=== PATIENT | female | born 1995 | race Caucasian/White ===

== ENCOUNTER → 2017-10-31 17:42 | Outpatient (CLI) | payer SELFPAY ==
[2017-10-31 18:58] LABS: Erythrocyte Sedimentation Rate 60 mm/hr (0-20)
[2017-10-31 19:28] LABS: Creatine Kinase 2134 U/L (26-192)
== END ==
PROVIDERS: PCP Emergency Medicine; Visit Provider Emergency Medicine
DX: M60.9 Myositis, unspecified (principal)
CPT/HCPCS: 36415; 82550; 85651

== ENCOUNTER → 2018-03-13 08:10 | Outpatient (CLI) | payer SELFPAY ==
[2018-03-13 13:33] LABS: Basophils % 0.7 % (0.1-2.0); Eosinophils # 0.3 K/mm3 (0.0-0.4); Eosinophils % 5.7 % (0.1-12.0); Hematocrit 43.8 % (37.0-47.0); Lymphocytes # 2.3 K/mm3 (0.7-4.5); Lymphocytes % 40.8 K/mm3 (10-50); Mean Corpuscular HGB Conc 32.1 g/dL (31.8-35.4); Mean Corpuscular Hemoglobin 28.6 pg (27.0-31.2); Mean Corpuscular Volume 89.2 fl (81-99); Mean Platelet Volume 7.8 fl (7.4-10.4); Monocytes # 0.3 K/mm3 (0.1-1.0); Monocytes % 6.1 % (1.7-9.3); Neutrophils # 2.6 K/mm3 (1.8-7.8); Neutrophils % 46.8 % (37.0-80.0); Platelet Count 244 K/mm3 (142-424); Red Blood Count 4.91 M/mm3 (4.20-5.40); Red Cell Distribution Width 12.6 % (11.5-17.5); White Blood Count 5.6 K/mm3 (4.8-10.8)
[2018-03-13 14:13] LABS: Alanine Aminotransferase 94 U/L (12-78); Albumin Level 4.1 gm/dL (3.4-5.0); Albumin/Globulin Ratio 1.4 (1.1-1.8); Alkaline Phosphatase 61 U/L (46-116); Anion Gap 13.2 mEq/L (5-15); Aspartate Amino Transferase 57 U/L (15-37); Bilirubin,Total 0.4 mg/dL (0.2-1.0); Blood Urea Nitrogen 18 mg/dL (7-18); Carbon Dioxide 26 mmol/L (21.0-32.0); Chloride 105 mmol/L (98-107); Creatinine,Serum 0.37 mg/dL (0.55-1.02); Estimated Glomerular Filt Rate 215 ml/min (>60); GFR (African American) 260 ML/MIN (>60); Globulin 2.9 gm/dl (1.3-3.2); Glucose 86 mg/dL (74-106); Potassium 4.2 mmoL/L (3.5-5.1); Sodium 140 mmol/L (136-145)
[2018-03-13 14:24] LABS: Erythrocyte Sedimentation Rate 4 mm/hr (0-20)
[2018-03-13 16:48] LABS: Hemoglobin A1C 5.3 % (0.0-7.0)
[2018-03-13 17:21] LABS: Thyroid Stimulating Hormone 1.33 uIU/ml (0.358-3.740)
[2018-03-13 17:30] LABS: Creatine Kinase 1971 U/L (26-192)
[2018-03-15 02:34] LABS: Folate >20.0 ng/mL (>3.0); Vitamin B12 1061 pg/mL (232-1245)
[2018-03-16 09:12] LABS: Anti-Jo-1 <0.2 AI (0.0-0.9); Anti-Smith Antibody <0.2 AI (0.0-0.9); Antichromatin Antibodies <0.2 AI (0.0-0.9); Antiscleroderma-70 Antibodies <0.2 AI (0.0-0.9); RNP Antibodies 0.6 AI (0.0-0.9); Sjogren's Anti-SS-A <0.2 AI (0.0-0.9); Sjogren's Anti-SS-B <0.2 AI (0.0-0.9)
[2018-03-16 09:48] LABS: Anti-Centromere B Antibodies <0.2 AI (0.0-0.9); Anti-DNA (DS) Ab Qn 2 IU/mL (0-9)
== END ==
PROVIDERS: Visit Provider Specialist
DX: M62.81 Muscle weakness (generalized) (principal); M60.9 Myositis, unspecified; G72.9 Myopathy, unspecified; M33.20 Polymyositis, organ involvement unspecified
CPT/HCPCS: 36415; 80053; 82085; 82550; 82607; 82746; 83036; 84443; 85025; 85651; 86225; 86235

== ENCOUNTER → 2018-03-30 10:41 | Outpatient (CLI) | payer SELFPAY ==
--- NOTE | 2018-03-30 10:42 | CA_ITS ---
PROCEDURE: 2-D M-mode and color Doppler study INDICATIONS FOR THE TEST: Chest pain COPD Heart Murmur Tobacco Smoking Palpitations FatigueX Syncope Edema Hypertension Diabetes Mellitus Rheumatic Fever SOB CEBALLOS Obesity Hyperlipidemia Family History HD Additional History MYOSITIS,FATIGUE,MYOPATHY PATIENT INFORMATION HEIGHT: 65 WEIGHT:108 GENDER: Female B/P:121/92 2-D/M-MODE INTERPRETATION: 2-D MEASUREMENTS OBSERVED VALUES IN CMS Right Ventricular Dimension (RVDd) 2.0 Interventricular Septum (Thickness)(IVsd) .5 Left Ventricular Internal Dimensions(LVIDd) 5.0 Left Ventricular Posterior Wall (Thickness)(LVPWd) .6 Aortic Root 2.7 Aortic Cusp Separation 2.1 Left Atrial Dimensions (LAD) 2.4 2D 1. Left atrium is normal size, left ventricle is normal size, there is no concentric left ventricular hypertrophy, visually estimated ejection fraction 55% with no obvious regional wall motion abnormality. 2. The right atrium and right ventricle are normal size and contractility. 3. The aortic, mitral and tricuspid valve are grossly normal. 4. The pulmonic valve is poorly visualized. 5. No significant pericardial effusion noted. DOPPLER INTERROGATION: Doppler interrogation of the aortic, mitral and tricuspid valvular presence of mild mitral and tricuspid regurgitation, tricuspid and jet velocity is insufficient for calculation of the right ventricular systolic pressure, diastolic parameters are within normal range. CONCLUSION: 1. Normal left ventricular size, preserved left ventricular systolic function, visually estimated ejection fraction 55% with no obvious regional wall motion abnormality, diastolic parameters are within normal range. 2. Mild mitral and tricuspid regurgitation 3. No significant pericardial effusion noted.
--- NOTE | 2018-03-30 14:29 | XR_ITS ---
XR chest 2V HISTORY: ITS.REASON: muscle weakness ORDERING PHYSICIAN: Marian Cortes MD PATIENT AGE: 22 years FINDINGS: The cardiomediastinal silhouette and pulmonary vascularity are within normal limits. The lungs are clear without infiltrates, suspicious nodules, or pleural effusions. No acute bony abnormalities. IMPRESSION: Negative chest, no acute finding
== END ==
PROVIDERS: PCP Emergency Medicine; Visit Provider Specialist
DX: M62.81 Muscle weakness (generalized) (principal); M60.9 Myositis, unspecified; G72.9 Myopathy, unspecified; M33.20 Polymyositis, organ involvement unspecified
CPT/HCPCS: 71046; 93306; 94060; 94640; 94726; 94729

== ENCOUNTER → 2018-04-13 10:19 | Outpatient (POV) | payer SELFPAY | PROVIDERS: PCP Emergency Medicine; Visit Provider Specialist | DX: M62.81 Muscle weakness (generalized) (principal); M60.9 Myositis, unspecified; G72.9 Myopathy, unspecified; M33.20 Polymyositis, organ involvement unspecified | CPT/HCPCS: 95886; 95910 ==

== ENCOUNTER → 2018-04-24 08:00 | Outpatient (CLI) | payer SELFPAY ==
[2018-04-24 11:22] LABS: Creatine Kinase 1466 U/L (26-192)
[2018-04-30 06:55] LABS: Aldolase 24.2 U/L (3.3-10.3)
== END ==
PROVIDERS: Visit Provider Specialist
DX: M62.81 Muscle weakness (generalized) (principal); M33.20 Polymyositis, organ involvement unspecified
CPT/HCPCS: 36415; 82085; 82550

== ENCOUNTER → 2018-06-26 07:59 | Outpatient (CLI) | payer SELFPAY ==
[2018-06-26 08:23] LABS: Basophils % 0.1 % (0.1-2.0); Eosinophils # 0.1 K/mm3 (0.0-0.4); Eosinophils % 0.5 % (0.1-12.0); Hematocrit 46.4 % (37.0-47.0); Hemoglobin 15.6 g/dL (12.2-16.2); Lymphocytes # 1.3 K/mm3 (0.7-4.5); Mean Corpuscular HGB Conc 33.7 g/dL (31.8-35.4); Mean Corpuscular Hemoglobin 30.9 pg (27.0-31.2); Mean Corpuscular Volume 91.6 fl (81-99); Monocytes # 0.6 K/mm3 (0.1-1.0); Monocytes % 5.2 % (1.7-9.3); Neutrophils % 83.2 % (37.0-80.0); Platelet Count 275 K/mm3 (142-424); Red Blood Count 5.06 M/mm3 (4.20-5.40); Red Cell Distribution Width 12.8 % (11.5-17.5)
[2018-06-26 09:41] LABS: Alanine Aminotransferase 116 U/L (12-78); Albumin Level 3.7 gm/dL (3.4-5.0); Albumin/Globulin Ratio 1.3 (1.1-1.8); Alkaline Phosphatase 57 U/L (46-116); Anion Gap 11.3 mEq/L (5-15); Aspartate Amino Transferase 53 U/L (15-37); Bilirubin,Total 0.4 mg/dL (0.2-1.0); Blood Urea Nitrogen 13 mg/dL (7-18); Calcium 9.2 mg/dL (8.5-10.1); Carbon Dioxide 31 mmol/L (21.0-32.0); Chloride 103 mmol/L (98-107); Creatine Kinase 1098 U/L (26-192); Creatinine,Serum 0.24 mg/dL (0.55-1.02); Estimated Glomerular Filt Rate 351 ml/min (>60); GFR (African American) 424 ML/MIN (>60); Globulin 2.9 gm/dl (1.3-3.2); Glucose 82 mg/dL (74-106); Potassium 4.3 mmoL/L (3.5-5.1); Sodium 141 mmol/L (136-145); Total Protein,Serum 6.6 gm/dL (6.4-8.2)
== END ==
PROVIDERS: PCP Emergency Medicine; Visit Provider Specialist
DX: R53.1 Weakness (principal); M33.20 Polymyositis, organ involvement unspecified
CPT/HCPCS: 36415; 80053; 82550; 85025

== ENCOUNTER → 2018-08-07 17:19 | Outpatient (CLI) | payer SELFPAY ==
[2018-08-07 17:59] LABS: Basophils % 0.4 % (0.1-2.0); Eosinophils # 0.1 K/mm3 (0.0-0.4); Eosinophils % 0.6 % (0.1-12.0); Hematocrit 43.4 % (37.0-47.0); Lymphocytes # 3.2 K/mm3 (0.7-4.5); Lymphocytes % 32.1 % (10-50); Mean Corpuscular HGB Conc 32.4 g/dL (31.8-35.4); Mean Corpuscular Hemoglobin 29.6 pg (27.0-31.2); Mean Corpuscular Volume 91.6 fl (81-99); Monocytes # 0.7 K/mm3 (0.1-1.0); Monocytes % 7.6 % (1.7-9.3); Neutrophils # 5.8 K/mm3 (1.8-7.8); Neutrophils % 59.2 % (37.0-80.0); Platelet Count 296 K/mm3 (142-424); Red Blood Count 4.74 M/mm3 (4.20-5.40); Red Cell Distribution Width 12.4 % (11.5-17.5); White Blood Count 9.8 K/mm3 (4.8-10.8)
[2018-08-07 20:07] LABS: Alanine Aminotransferase 87 U/L (12-78); Albumin/Globulin Ratio 1.5 (1.1-1.8); Alkaline Phosphatase 58 U/L (46-116); Aspartate Amino Transferase 53 U/L (15-37); Bilirubin,Total 0.4 mg/dL (0.2-1.0); Blood Urea Nitrogen 17 mg/dL (7-18); Calcium 9.2 mg/dL (8.5-10.1); Carbon Dioxide 28 mmol/L (21.0-32.0); Chloride 102 mmol/L (98-107); Creatinine,Serum 0.38 mg/dL (0.55-1.02); Estimated Glomerular Filt Rate 206 ml/min (>60); GFR (African American) 250 ML/MIN (>60); Globulin 2.6 gm/dl (1.3-3.2); Glucose 74 mg/dL (74-106); Sodium 139 mmol/L (136-145); Total Protein,Serum 6.6 gm/dL (6.4-8.2)
[2018-08-07 20:13] LABS: Creatine Kinase 1575 U/L (26-192)
== END ==
PROVIDERS: Visit Provider Specialist
DX: M33.20 Polymyositis, organ involvement unspecified (principal)
CPT/HCPCS: 36415; 80053; 82550; 85025

== ENCOUNTER → 2018-09-25 17:07 | Outpatient (CLI) | payer SELFPAY ==
[2018-09-25 17:45] LABS: Basophils % 0.3 % (0.1-2.0); Eosinophils # 0.1 K/mm3 (0.0-0.4); Eosinophils % 0.6 % (0.1-12.0); Hematocrit 46.9 % (37.0-47.0); Hemoglobin 15.7 g/dL (12.2-16.2); Lymphocytes % 35.2 % (10-50); Mean Corpuscular HGB Conc 33.6 g/dL (31.8-35.4); Mean Corpuscular Hemoglobin 30.9 pg (27.0-31.2); Mean Platelet Volume 7.2 fl (7.4-10.4); Monocytes # 0.8 K/mm3 (0.1-1.0); Monocytes % 6.5 % (1.7-9.3); Neutrophils # 6.6 K/mm3 (1.8-7.8); Neutrophils % 57.5 % (37.0-80.0); Platelet Count 287 K/mm3 (142-424); Red Cell Distribution Width 12.5 % (11.5-17.5); White Blood Count 11.4 K/mm3 (4.8-10.8)
[2018-09-25 19:41] LABS: Alanine Aminotransferase 127 U/L (12-78); Albumin Level 3.8 gm/dL (3.4-5.0); Albumin/Globulin Ratio 1.5 (1.1-1.8); Alkaline Phosphatase 49 U/L (46-116); Aspartate Amino Transferase 75 U/L (15-37); Bilirubin,Total 0.5 mg/dL (0.2-1.0); Blood Urea Nitrogen 11 mg/dL (7-18); Calcium 9.1 mg/dL (8.5-10.1); Carbon Dioxide 31 mmol/L (21.0-32.0); Chloride 100 mmol/L (98-107); Estimated Glomerular Filt Rate 194 ml/min (>60); GFR (African American) 235 ML/MIN (>60); Globulin 2.6 gm/dl (1.3-3.2); Glucose 89 mg/dL (74-106); Sodium 138 mmol/L (136-145); Total Protein,Serum 6.4 gm/dL (6.4-8.2)
== END ==
PROVIDERS: Visit Provider Specialist
DX: M33.20 Polymyositis, organ involvement unspecified (principal)
CPT/HCPCS: 36415; 80053; 85025

== ENCOUNTER → 2018-10-05 14:17 | Outpatient (CLI) | payer SELFPAY ==
[2018-10-05 19:05] LABS: Creatine Kinase 1234 U/L (26-192)
== END ==
PROVIDERS: Visit Provider Specialist
DX: M33.20 Polymyositis, organ involvement unspecified (principal)
CPT/HCPCS: 36415; 82550

== ENCOUNTER → 2018-12-02 08:32 | Outpatient (CLI) | payer SELFPAY ==
[2018-12-02 13:46] LABS: Basophils % 0.4 % (0.1-2.0); Eosinophils # 0.1 K/mm3 (0.0-0.4); Eosinophils % 0.6 % (0.1-12.0); Hemoglobin 14.8 g/dL (12.2-16.2); Lymphocytes # 1.5 K/mm3 (0.7-4.5); Lymphocytes % 15.2 % (10-50); Mean Corpuscular HGB Conc 35.3 g/dL (31.8-35.4); Mean Corpuscular Hemoglobin 31.6 pg (27.0-31.2); Mean Corpuscular Volume 89.5 fl (81-99); Mean Platelet Volume 7.1 fl (7.4-10.4); Monocytes # 0.4 K/mm3 (0.1-1.0); Monocytes % 3.8 % (1.7-9.3); Neutrophils # 7.6 K/mm3 (1.8-7.8); Neutrophils % 80.1 % (37.0-80.0); Platelet Count 357 K/mm3 (142-424); Red Blood Count 4.69 M/mm3 (4.20-5.40); Red Cell Distribution Width 13.2 % (11.5-17.5); White Blood Count 9.5 K/mm3 (4.8-10.8)
[2018-12-02 14:14] LABS: Alanine Aminotransferase 162 U/L (12-78); Albumin Level 3.7 gm/dL (3.4-5.0); Albumin/Globulin Ratio 1.4 (1.1-1.8); Alkaline Phosphatase 43 U/L (46-116); Anion Gap 12.9 mEq/L (5-15); Aspartate Amino Transferase 72 U/L (15-37); Bilirubin,Total 0.4 mg/dL (0.2-1.0); Blood Urea Nitrogen 8 mg/dL (7-18); Calcium 9.3 mg/dL (8.5-10.1); Carbon Dioxide 27 mmol/L (21.0-32.0); Chloride 102 mmol/L (98-107); Creatinine,Serum 0.25 mg/dL (0.55-1.02); Estimated Glomerular Filt Rate 335 ml/min (>60); GFR (African American) 405 ML/MIN (>60); Globulin 2.7 gm/dl (1.3-3.2); Glucose 93 mg/dL (74-106); Potassium 3.9 mmoL/L (3.5-5.1); Sodium 138 mmol/L (136-145); Total Protein,Serum 6.4 gm/dL (6.4-8.2)
== END ==
PROVIDERS: PCP Emergency Medicine; Visit Provider Specialist
DX: M33.20 Polymyositis, organ involvement unspecified (principal)
CPT/HCPCS: 36415; 80053; 85025

== ENCOUNTER → 2018-12-04 10:30 | Outpatient (CLI) | payer SELFPAY ==
[2018-12-04 11:04] LABS: Creatine Kinase 1557 U/L (26-192)
[2018-12-07 13:28] LABS: Aldolase 21.4 U/L (3.3-10.3)
== END ==
PROVIDERS: Visit Provider Specialist
DX: M33.20 Polymyositis, organ involvement unspecified (principal)
CPT/HCPCS: 36415; 82085; 82550

== ENCOUNTER → 2018-12-24 18:13 | Outpatient (CLI) | payer SELFPAY ==
[2018-12-24 20:20] LABS: Alanine Aminotransferase 94 U/L (12-78); Albumin Level 3.5 gm/dL (3.4-5.0); Albumin/Globulin Ratio 1.3 (1.1-1.8); Alkaline Phosphatase 48 U/L (46-116); Anion Gap 12.2 mEq/L (5-15); Aspartate Amino Transferase 45 U/L (15-37); Bilirubin,Total 0.3 mg/dL (0.2-1.0); Blood Urea Nitrogen 7 mg/dL (7-18); Carbon Dioxide 29 mmol/L (21.0-32.0); Chloride 103 mmol/L (98-107); Creatine Kinase 1042 U/L (26-192); Creatinine,Serum 0.35 mg/dL (0.55-1.02); Estimated Glomerular Filt Rate 227 ml/min (>60); GFR (African American) 275 ML/MIN (>60); Globulin 2.8 gm/dl (1.3-3.2); Glucose 81 mg/dL (74-106); Potassium 3.2 mmoL/L (3.5-5.1); Sodium 141 mmol/L (136-145); Total Protein,Serum 6.3 gm/dL (6.4-8.2)
[2018-12-24 20:25] LABS: Creatine Kinase MB 32.2 ng/ml (0.0-3.6)
[2018-12-26 18:15] LABS: Peripheral Smear Review Scanned Result
[2018-12-30 14:26] LABS: Arsenic, Blood 8 ug/L (2-23); Lead, Blood None Detected ug/dL (0-4); Mercury, Blood None Detected ug/L (0.0-14.9)
== END ==
PROVIDERS: Visit Provider Nurse Practitioner Family
DX: M33.20 Polymyositis, organ involvement unspecified (principal); R53.1 Weakness
CPT/HCPCS: 36415; 80053; 82175; 82550; 82553; 83655; 83825

== ENCOUNTER 2021-02-26 15:15 | Emergency (ER) | payer SELFPAY ==
[2021-02-26 15:37] VITALS: BP 130/80; PULSE 92; RESP 18; TEMP 37; O2SAT 100; BMI 16.9
[2021-02-26 15:46] VITALS: PULSE 92; RESP 18; TEMP 36.9; O2SAT 100; BMI 16.9
[2021-02-26 16:26] LABS: UTC Pregnancy Test, Urine Negative (Negative)
--- NOTE | 2021-02-26 16:32 | HMH.EDUTC ---
[facility] [place] Clinical Impression: Migraine headache Qualifiers: Migraine type: unspecified Status migrainosus presence: without status migrainosus Intractability: not intractable Qualified Code(s): G43.909 - Migraine, unspecified, not intractable, without status migrainosus Disposition: Home, Self-Care Condition on Discharge: Good Instructions: Tension Headache, Migraine -- Adult, DI for Migraine Additional Instructions: Go home lay down and try to sleep off remainder of Migraine Headache Follow up with your Family Doctor if head worsens or returns Straight to ER if you are having the worse headache of your life, trouble with vision or changes in behavior Return if needed Referrals: Provider,Referral, MD [Primary Care Provider] - As needed Time of Disposition: 17:10 Medical Decision Making - Raymond Inquiry Pt receiving controlled substance: No Raymond was queried for this patient: No Vital Signs: 02/26/21 15:37 02/26/21 15:46 02/26/21 16:58 Temperature 98.6 F 98.5 F 98.6 F Temperature Source Oral Oral Pulse Rate 92 H Pulse Rate [Left Radial] 92 H 92 H Respiratory Rate 18 18 16 Blood Pressure 130/80 Blood Pressure [Left Arm] 130/80 Blood Pressure Mean [Left Arm] 96 Blood Pressure Source [Left Arm] Automatic Cuff Blood Pressure Position [Left Arm] Sitting 02 Sat by Pulse Oximetry 100 100 Oxygen Delivery Method Room Air - Lab Data Lab results reviewed: Yes: I reviewed the patient's lab results. Lab Results 02/26/21 16:10: Tst Clinic Negative Orders (Tests/Meds): ED MEDICATIONS Discontinued Medications Generic Name Dose Route Start Last Admin Trade Name Daniella PRN Reason Stop Dose Admin Diphenhydramine HCl 25 mg 02/26/21 16:34 02/26/21 16:47 Diphenhydramine 50mg/Ml Vial IM 02/26/21 16:35 25 mg ONCE ONE Administration Ketorolac Tromethamine 60 mg 02/26/21 16:34 02/26/21 16:46 Ketorolac 60mg/2ml Vial IM 02/26/21 16:35 60 mg ONCE ONE Administration Ondansetron HCl 4 mg 02/26/21 16:34 02/26/21 16:48 Ondansetron 4mg Odt SL 02/26/21 16:35 4 mg ONCE ONE Administration Medical Decision Narrative: Patient state that headache is feeling much better patient dc'd home Discussed with patient that if headache worsens or if she has the worse headache of her life to go straight to the ED and follow up with Family Doctor if headache returns patient states that she did not have a PCP so she was given a list of accepting physicians for follow up [facility] [place] - General Stated complaint: TRAN Time Seen by Provider: 02/26/21 16:15 Mode of Arrival: Ambulatory Source of Information: Patient Limitations: No Limitations Description of Symptoms (Recalled from Triage Doc. by RN): pt c/o of a TRAN on the L posterior side. this has been ongoing for a week with no relief. pt took ibprofen first thing this morning with no relief. pt has had some nausea and as of yesterday lost her appetite. HEENT Symptoms (Recalled from RN notes): Yes (TRAN) Resp Symptoms (Recalled from RN notes): No Skin Symptoms (Recalled from RN notes): No MS Symptoms (Recalled from RN notes): No Functional Status (Recalled from RN notes): na - History of Present Illness Provider Complaint: Patient states that she has been having a headache for about a week States that it hurts in the back of her neck, back of head and on left side of head but feels like it is starting to move around her head.States that she has taken Motrin and it will help but then comes back Denies vision changes denies worse headache of her life States that at the worse rates pain a 5 and it makes her feels sick at her stomach - Related Data Home Medications Medication Instructions Recorded Confirmed No Known Home Medications 03/09/19 01/07/20 Allergies Allergy/AdvReac Type Severity Reaction Status Date / Time No Known Drug Allergies Allergy Unknown Verified 02/26/21 15:41 [NO KNOWN DRUG ALLERGIES]
[2021-02-26 16:58] VITALS: BP 130/80; PULSE 92; RESP 16; TEMP 37
== END 2021-02-26 17:12 | disposition home or self-care (01) ==
PROVIDERS: Emergency Provider Nurse Practitioner
DX: G43.909 Migraine, unspecified, not intractable, without status migrainosus (principal)
CPT/HCPCS: 81025; 96372; 99202; G0463

== ENCOUNTER 2021-03-05 17:01 | Emergency (ER) | payer SELFPAY ==
[2021-03-05 17:02] VITALS: BP 136/86; PULSE 64; RESP 16; TEMP 36.6; O2SAT 98; BMI 17.7
--- NOTE | 2021-03-05 17:12 | ECG_ITS ---
APPROVED REPORT Exam: Resting ECG HR:70 bpm ECG Measurements Heart Rate 70 AXES ME 122 P 63 QRSd 76 QRS 54 QT 432 T 48 QTc 466 Conclusion Normal sinus rhythm with sinus arrhythmia Left atrial abnormality Borderline ECG Electronically signed by : Beni Leigh, 03/06/2021 08:18:07
[2021-03-05 17:22] LABS: POC Glucose,Bedside 65 (70-110)
--- NOTE | 2021-03-05 17:23 | CT_ITS ---
PROCEDURE INFORMATION: Exam: CT Head Without Contrast Exam date and time: 03/05/2021 5:23 PM Age: 25 years old Clinical indication: Pain; Headache not specified; Patient HX: Headache for a week. TECHNIQUE: Imaging protocol: Computed tomography of the head without contrast. Radiation optimization: All CT scans at this facility use at least one of these dose optimization techniques: automated exposure control; mA and/or kV adjustment per patient size (includes targeted exams where dose is matched to clinical indication); or iterative reconstruction. COMPARISON: No relevant prior studies available. FINDINGS: Brain: Normal. No hemorrhage. Unremarkable white matter. No mass effect. Cerebral ventricles: No ventriculomegaly. Paranasal sinuses: Visualized sinuses are unremarkable. No fluid levels. Mastoid air cells: Visualized mastoid air cells are well aerated. Bones/joints: No acute fracture. Soft tissues: No acute changes IMPRESSION: No acute intracranial abnormality.
[2021-03-05 17:34] LABS: Basophils % 0.6 % (0.1-2.0); Eosinophils # 0.1 K/mm3 (0.0-0.4); Eosinophils % 2.8 % (0.1-12.0); Hematocrit 41.1 % (37.0-47.0); Hemoglobin 13.6 g/dL (12.2-16.2); Lymphocytes % 39.1 % (10-50); Mean Corpuscular HGB Conc 33.1 g/dL (31.8-35.4); Mean Corpuscular Hemoglobin 29.1 pg (27.0-31.2); Mean Corpuscular Volume 87.8 fl (81-99); Mean Platelet Volume 8.5 fl (7.4-10.4); Monocytes # 0.2 K/mm3 (0.1-1.0); Monocytes % 4.8 % (1.7-9.3); Neutrophils # 2.6 K/mm3 (1.8-7.8); Neutrophils % 52.7 % (37.0-80.0); Platelet Count 198 K/mm3 (142-424); Red Blood Count 4.68 M/mm3 (4.20-5.40); Red Cell Distribution Width 12.8 % (11.5-17.5)
[2021-03-05 17:43] LABS: Alanine Aminotransferase 54 U/L (12-78); Albumin Level 4.7 g/dl (3.5-5.0); Albumin/Globulin Ratio 1.8 (1.1-1.8); Alkaline Phosphatase 52 U/L (38-126); Anion Gap 9.9 mEq/L (5-15); Aspartate Amino Transferase 54 U/L (14-36); Bilirubin,Total 0.6 mg/dl (0.2-1.3); Blood Urea Nitrogen 13 mg/dl (7-17); Calcium 8.9 mg/dl (8.4-10.2); Carbon Dioxide 26 mmol/L (22.0-30.0); Chloride 105 mmol/L (98-107); Creatinine Clearance Estimated 166 mL/min (50-200); Estimated Glomerular Filt Rate 191 ml/min (>60); GFR (African American) 232 ML/MIN (>60); Globulin 2.6 g/dL (1.3-3.2); Glucose 101 mg/dl (74-100); Potassium 3.9 mmoL/L (3.5-5.1); Sodium 137 mmol/L (136-145); Total Protein,Serum 7.3 g/dl (6.3-8.2)
[2021-03-05 17:59] LABS: HCG Qualitative, Serum Negative (Negative)
--- NOTE | 2021-03-05 18:24 | HMH.EDHA ---
ED Disposition Clinical Impression: Migraine Qualifiers: Migraine type: without aura Status migrainosus presence: without status migrainosus Intractability: not intractable Qualified Code(s): G43.009 - Migraine without aura, not intractable, without status migrainosus Disposition: Home, Self-Care Condition on Discharge: Good Instructions: Migraine -- Adult Prescriptions: Butalb/Acetaminophen/Caffeine [Fiorcet Tablet] 1 tab PO BID #20 tablet Transmission Status: Sent to [facility] Referrals: Lalo Espinoza APRN [Primary Care Provider] - - Critical Care Critical Care Time: No Attestation: On 03/05/21, the high probability of a clinically significant, sudden or life threatening deterioration of the following system(s) required my full and direct attention, intervention and personal management. The time I documented below is in addition to time spent performing reported procedures but includes the following listed in this critical care notation. Medical Decision Making - Medical Records Medical records reviewed: Yes: I reviewed the patient's medical records. - Raymond Inquiry Pt receiving controlled substance: No Vital Signs: 03/05/21 17:02 Temperature 98 F Temperature Source Oral Pulse Rate [Radial] 64 Respiratory Rate 16 Blood Pressure [Right Arm] 136/86 Blood Pressure Mean [Right Arm] 102 Blood Pressure Position [Right Arm] Sitting 02 Sat by Pulse Oximetry 98 Oxygen Delivery Method Room Air - Lab Data Lab Results 03/05/21 17:12: POC Glucose 65 L 03/05/21 17:27: WBC 5.0, RBC 4.68, Hgb 13.6, Hct 41.1, MCV 87.8, MCH 29.1, MCHC 33.1, RDW 12.8, Plt Count 198, MPV 8.5, Neut % (Auto) 52.7, Lymph % (Auto) 39.1, [place] % (Auto) 4.8, Eos % (Auto) 2.8, Baso % (Auto) 0.6, Neut # (Auto) 2.6, Lymph # (Auto) 2.0, [place] # (Auto) 0.2, Eos # (Auto) 0.1, Baso # (Auto) 0.0 03/05/21 17:27: Sodium 137, Potassium 3.9, Chloride 105, Carbon Dioxide 26, Anion Gap 9.9, BUN 13, Creatinine 0.40 L, Estimated Creat Clear 166, Estimated GFR 191, Est GFR ( Amer) 232, Glucose 101 H, Calcium 8.9, Total Bilirubin 0.6, AST 54 H, ALT 54, Alkaline Phosphatase 52, Total Protein 7.3, Albumin 4.7, Globulin 2.6, Albumin/Globulin Ratio 1.8 03/05/21 17:27: Serum HCG, Qual Negative 03/05/21 19:00: Urine Color Yellow, Urine Appearance Clear, Urine pH 6.0, Ur Specific [place] 1.015, Urine Protein Negative, Urine Glucose (UA) Negative, Urine Ketones 1+, Urine Blood Negative, Urine Nitrate Negative, Urine Bilirubin Negative, Urine Urobilinogen 0.2, Ur Leukocyte Esterase Negative Result diagrams: 03/05/21 17:27 03/05/21 17:27 Orders (Tests/Meds): ED MEDICATIONS Generic Name Dose Route Start Last Admin Trade Name Freq PRN Reason Stop Dose Admin Sodium Chloride 1,000 mls @ 999 mls/hr 03/05/21 17:30 03/05/21 17:47 Sod Chlor 0.9% 1000ml Bag IV 03/05/21 18:30 999 mls/hr .Q1H1M LIBIA Administration Sodium Chloride 8 ml 03/05/21 17:27 Sodium Chloride 0.9% 10ml Vial IV 04/04/21 17:26 NEEDED PRN dilute pepcid Discontinued Medications Generic Name Dose Route Start Last Admin Trade Name Freq PRN Reason Stop Dose Admin Famotidine 20 mg 03/05/21 17:27 03/05/21 17:46 Famotidine 20mg/2ml Vial IV 03/05/21 17:28 20 mg ONCE ONE Administration Ketorolac Tromethamine 30 mg 03/05/21 17:27 03/05/21 18:53 Ketorolac 30mg/Ml Vial IV 03/05/21 17:28 30 mg ONCE ONE Administration Ondansetron HCl 4 mg 03/05/21 17:27 03/05/21 17:46 Ondansetron 4mg/2ml Vial IV 03/05/21 17:28 4 mg ONCE ONE Administration ORDERS Category Date Time Status Urinalysis and Microscopic Stat Lab 03/05/21 19:00 Received - CT Data CT Scan: Head Time Received: 19:[address] Reviewed: Yes: I have reviewed the patient's CT results, I have viewed the radiologist's interpretation Preliminary Findings: Normal/NAD - ECG Data Tracing #1 Normal trickle rate of 70 bpm, [place] interval 122 ms, QTC of 4-6 6 ms
[2021-03-05 19:18] LABS: Microscopic, Urine URINE MICROSCOPIC (MICROSCOPIC)
[2021-03-05 19:19] LABS: Appearance,Urine CLEAR (Clear); Bilirubin,Urine Negative (Negative); Blood, Urine Negative (Negative); Color,Urine YELLOW (Yellow); Glucose,Urine (UA) Negative (Negative); Ketones,Urine 1+ (Negative); Leukocyte Esterase,Urine Negative (Negative); Nitrate,Urine Negative (Negative); Protein,Urine Negative (Negative); Specific Gravity, Urine 1.015 (1.005-1.030); Urobilinogen,Urine 0.2 EU/dl (0.2)
[2021-03-05 19:56] LABS: RBC,Urine Occasional #/hpf (0-3)
[2021-03-05 20:18] VITALS: BP 134/62; PULSE 62; RESP 16; TEMP 36.7; O2SAT 99
== END 2021-03-05 20:22 | disposition home or self-care (01) ==
PROVIDERS: Emergency Provider Emergency Medicine; PCP Nurse Practitioner Family
DX: G43.009 Migraine without aura, not intractable, without status migrainosus (principal)
CPT/HCPCS: 70450; 80053; 81001; 82962; 84703; 85025; 93005; 96365; 96375; 99283; J2405